=== PATIENT | female | born 1960 | race Caucasian/White ===

== ENCOUNTER → 2017-01-27 | Outpatient (CLI) | payer OTHER | LOC: CIMAGING 09:35 | PROVIDERS: ATTEND Family Medicine | DX: Z12.31 Encounter for screening mammogram for malignant neoplasm of breast (principal); Z80.3 Family history of malignant neoplasm of breast | CPT/HCPCS: G0202 ==

== ENCOUNTER → 2017-02-07 | Outpatient (CLI) | payer OTHER | LOC: CIMAGING 13:18 | PROVIDERS: ATTEND Family Medicine | DX: R92.8 Other abnormal and inconclusive findings on diagnostic imaging of breast (principal) | CPT/HCPCS: G0206 ==

== ENCOUNTER 2017-03-22 01:18 | Emergency (ER) | payer SELFPAY ==
[2017-03-22] MEDS ORDERED: BENZONATATE 100 MG CAP PO ONE (01:51)
--- NOTE | 2017-03-22 01:51 | EDPHY ---
H & P Stated Complaint: cough, sore throat, body aches, fever since friday Time Seen by Provider: 03/22/17 01:22 HPI/ROS: CHIEF COMPLAINT: cough, fever, headache, body aches HISTORY OF PRESENT ILLNESS: medically stable 56-year-old female who has been ill for 60 hours. From the beginning she has had moderate, diffuse body aches, headache, myalgias, dry cough, and fever. T-max at home has been 102.6. Did have a mild cold last week, but that only lasted 1-2 days. She was immunized approximately 1 month ago for the seasonal influenza. However she, last week she was exposed to both her and son who were ill with a similar influenza like illness. She has not been able sleep. His throat is quite a bother for her, though her phonation is normal. She finds that the cycling of Tylenol and ibuprofen together is not working for her discomfort as she is unable to sleep = she asked for something stronger, when I ask her how she is doing at home. Specifically, she is here at this odd hour the morning as she could not sleep [place] Prescription Drug Monitoring Program checked: no activity in last year REVIEW OF SYSTEMS: Constitutional: T-max 102.6 Eyes: No discharge ENT: Feels like razor blades when she swallows Cardiovascular: No chest pain, no palpitations. Respiratory: Though she has a dry cough and history of asthma she does not feel like she wheezing Gastrointestinal: No nausea vomiting or diarrhea. No abdominal pain. Genitourinary: No hematuria or frequency. Musculoskeletal: No back pain. Skin: No rashes. Neurological: Diffuse frontal headache 10 point ROS otherwise negative Source: Patient Exam Limitations: No limitations - Personal History Current Tetanus Diphtheria and Acellular Pertussis (TDAP): Yes - Medical/Surgical History Hx Asthma: Yes Hx Chronic Respiratory Disease: No Hx Diabetes: Yes Hx Cardiac Disease: No Hx Renal Disease: No Hx Cirrhosis: No Hx Alcoholism: No Hx HIV/AIDS: No Hx Splenectomy or Spleen Trauma: No Other PMH: asthma, htn - Family History Significant Family History: No pertinent family hx - Social History Smoking Status: Former smoker Alcohol Use: None Drug Use: None - Physical Exam Exam: General Appearance: Alert, hemodynamically stable without history of stress although looks like she feels crummy. Warmer to touch than the initial temperature suggests. . Normal phonation. No respiratory distress. Eyes: Pupils equal and round no pallor or injection. No icterus ENT, Mouth: Mucous membranes moist. Pharynx without erythema or exudate. TM Clear. Neck: No adenopathy. Supple. No JVD. Trachea in midline, nontender. Respiratory: There are no retractions, lungs are clear to auscultation, no rales or rhonchi. Chest wall: Nontender to palpation. No crepitus. Cardiovascular: Regular rate and rhythm. Neurological: Ox3. No motor weakness. Gait nl. Skin: Warm and dry, no rashes. Musculoskeletal: No joint swelling. Extremities: No edema. Psychiatric: Normal affect. Patient is oriented X 3. There is no agitation Constitutional: Initial Vital Signs Temperature (C) 37.1 C 03/22/17 01:31 Heart Rate 122 H 03/22/17 01:31 Respiratory Rate 18 03/22/17 01:31 Blood Pressure 168/102 H 03/22/17 01:31 O2 Sat (%) 94 03/22/17 01:31 O2 Delivery Mode Room Air Allergies/Adverse Reactions: erythromycin base [Erythromycin Base] Allergy (Verified 01/06/16 08:09) Home Medications: Medication Instructions Recorded Estradiol [Estradiol 1 MG (RX)] 11/21/15 medroxyPROGESTERone [Provera 2.5 11/21/15 mg (*)] Benzonatate 200 mg PO TID PRN #28 capsule 03/22/17 Hydrocodone/APAP 5/325 [Melville 1 tab PO Q4 #10 tab 03/22/17 5/325 (*)] Medical Decision Making ED Course/Re-evaluation: [place] prescription Drug monitoring database queried and no activity in the last year. Her strep screen was negative Influenza stirring positive for influenza A. We have not seen a moderate degree of influenza like illness with both people testing negative. She is now at 60 hours. There is truly marginal to no improvement with Tamiflu in the 1st place and she is well out 60 hour window - we discussed this. Further, no role of antibiotics in a case such as this. She will be 5 confined to [facility], she is currently retired thus will not need a work note. Differential Diagnosis: Diagnostic considerations include, but are not limited to, the following: URI, sinusitis, pharyngitis, otitis media, pneumonia, allergy, influenza. - Data Points Laboratory Results: 03/22/17 03/22/17 03/22/17 Unknown 01:27 01:27 Influenza A,B Rapid POSITIVE FOR FLU A H (NEGATIVE) Group A Strep Screen NEGATIVE (NEGATIVE) Group A Strep DNA Pending Medications Given: Discontinued Medications Hydrocodone Bitart/Acetaminophen (Melville 5/325mg Prepack#6) 1 btl TAKEHOME EDNOW ONE Stop: 03/22/17 01:54 Last Admin: 03/22/17 02:03 Dose: 1 btl Benzonatate (Tessalon Pearles) 200 mg PO EDNOW ONE Stop: 03/22/17 01:52 Last Admin: 03/22/17 02:02 Dose: 200 mg Ibuprofen (Motrin) 600 mg PO EDNOW ONE Stop: 03/22/17 02:08 Last Admin: 03/22/17 02:09 Dose: 600 mg Departure - Departure Disposition: Home, Routine, Self-Care Clinical Impression: Influenza A Condition: Fair Instructions: Hydrocodone/Acetaminophen (By mouth), Influenza (ED) Additional Instructions: Your quite contagious, it is important that he stay home for the next 4 days As the Tylenol is not working, substitute the Vicodin, also known as Melville Continue to push fluids and rest Recheck with family doctor in 3 days if not markedly improved Referrals: Patient,NotPresent [Primary Care Provider] - As per Instructions Prescriptions: Benzonatate 200 mg PO TID PRN #28 capsule PRN Reason: Cough, Moderate Hydrocodone/APAP 5/325 [Melville 5/325 (*)] 1 tab PO Q4 #10 tab
[2017-03-22] MEDS ORDERED: HYDROCOD/APAP 5/325 PREPACK#6 BTL TAKEHOME ONE (01:53)
[2017-03-22] MEDS ORDERED: IBUPROFEN 600 MG TAB PO ONE ×2 (02:07→02:08)
[2017-03-22 02:18] VITALS: BP 149/71; PULSE 114; RESP 20; TEMP 101.5; O2SAT 92
== END 2017-03-22 02:13 | disposition home or self-care (01) ==
LOC: CED 01:18
DX: J10.1 Influenza due to other identified influenza virus with other respiratory manifestations (principal); I10 Essential (primary) hypertension; J45.909 Unspecified asthma, uncomplicated; E11.9 Type 2 diabetes mellitus without complications; Z87.891 Personal history of nicotine dependence
CPT/HCPCS: 87400-PO; 87880-PO

== ENCOUNTER 2017-03-28 08:44 | Emergency (ER) | payer SELFPAY ==
--- NOTE | 2017-03-28 09:07 | EDPHY ---
H & P Stated Complaint: return visit from Sat- DX of INF-A/ rt lower leg pain since Time Seen by Provider: 03/28/17 08:58 HPI/ROS: CHIEF COMPLAINT: Right leg pain HISTORY OF PRESENT ILLNESS: Patient is a 56-year-old female who is suffering from the flu diagnosed last Friday here. She was treated with cough syrup and was doing well until she ran out yesterday. She states that she has a hard time sleeping because of her cough and the mucous in her sinuses. She also began noticing some pain in her right calf 2 days ago. She was concerned because she was on a 9 hour flight 10 days ago to [place]. She does not have any swelling or edema. No erythema. REVIEW OF SYSTEMS: Constitutional: See HPI EENTM: denies: blurred vision, double vision, nose congestion Respiratory: See HPI Cardiac: denies: chest pain, irregular heart rate, lightheadedness, palpitations Gastrointestinal/Abdominal: denies: abdominal pain, diarrhea, nausea, vomiting, blood streaked stools Genitourinary: denies: dysuria, frequency, hematuria, pain Musculoskeletal: See HPI Skin: denies: lesions, rash, jaundice, bruising Neurological: denies: headache, numbness, paresthesia, tingling, dizziness, weakness Hematologic/Lymphatic: denies: blood clots, easy bleeding, easy bruising Immunologic/allergic: denies: HIV/AIDS, transplant EXAM: GENERAL: Anxious, well-nourished and in no acute distress. HEAD: Atraumatic, normocephalic. EYES: Pupils equal round and reactive to light, extraocular movements intact, sclera anicteric, conjunctiva are normal. ENT: TMs normal, nares patent, oropharynx clear without exudates. Moist mucous membranes. NECK: Normal range of motion, supple without lymphadenopathy or JVD. LUNGS: Breath sounds clear to auscultation bilaterally and equal. No wheezes rales or rhonchi. HEART: Regular rate and rhythm without murmurs, rubs or gallops. ABDOMEN: Soft, nontender, normoactive bowel sounds. No guarding, no rebound. No masses appreciated. BACK: No CVA tenderness, no spinal tenderness, step-offs or deformities EXTREMITIES: Right calf pain, no tenderness, no swelling, no erythema, negative Homans NEUROLOGICAL: Cranial nerves II through XII grossly intact. Normal speech, normal gait. 5/5 strength, normal movement in all extremities, normal sensation PSYCH: Normal mood, normal affect. SKIN: Warm, dry, normal turgor, no visible rashes or lesions. Source: Patient Exam Limitations: No limitations - Personal History Current Tetanus Diphtheria and Acellular Pertussis (TDAP): Yes - Medical/Surgical History Hx Asthma: Yes Hx Chronic Respiratory Disease: No Hx Diabetes: Yes Hx Cardiac Disease: No Hx Renal Disease: No Hx Cirrhosis: No Hx Alcoholism: No Hx HIV/AIDS: No Hx Splenectomy or Spleen Trauma: No Other PMH: asthma, htn - Family History Significant Family History: No pertinent family hx - Social History Smoking Status: Former smoker Alcohol Use: Sober Drug Use: None Constitutional: Initial Vital Signs Temperature (C) 36.7 C 03/28/17 08:54 Heart Rate 100 03/28/17 08:54 Respiratory Rate 22 H 03/28/17 08:54 Blood Pressure 168/83 H 03/28/17 08:54 O2 Sat (%) 92 03/28/17 08:54 O2 Delivery Mode Room Air Allergies/Adverse Reactions: erythromycin base [Erythromycin Base] Allergy (Verified 01/06/16 08:09) Home Medications: Medication Instructions Recorded Estradiol [Estradiol 1 MG (RX)] 11/21/15 medroxyPROGESTERone [Provera 2.5 11/21/15 mg (*)] Benzonatate 200 mg PO TID PRN #28 capsule 03/22/17 Hydrocodone/APAP 5/325 [[place] 1 tab PO Q4 #10 tab 03/22/17 5/325 (*)] Guaifen/Dextromethorphan/PE 1 each PO BID #20 tablet 03/28/17 [Mucinex Fast-Max Congest-Cough] Medical Decision Making - Diagnostics Imaging Results: Imaging Impressions Extremity Venous Study 03/28/17 09:04 Impression: No evidence of deep vein thrombosis in the right lower extremity. Results called and discussed with Allan Palmer MD at 03/28/2017 9:54 Imaging: Discussed imaging studies w/ scallop cutter machine Radiologist ED Course/Re-evaluation: Patient's breath sounds are clear an oxygen saturations are normal. She is in no respiratory distress. We discussed restarting her cough medication. I will switch her to Mucinex hydrocodone. She is happy with this plan. She should only have a few days left of her flu symptoms. We will obtain an ultrasound of her right leg. 10:00 a.m. the patient is relieved with the ultrasound results. We discussed no medications, humidifier etc. She feels comfortable leaving and declines further workup or testing at this time. Differential Diagnosis: Partial list of the Differential diagnosis considered include but were not limited to; influenza, bronchitis, DVT, muscle strain and although unlikely based on the history and physical exam, I also considered meningitis, sepsis. I discussed these differential diagnoses and the plan with the patient as well as the usual and expected course. The patient understands that the diagnosis is provisional and that in medicine we are not always correct and that further workup is often warranted. Usual and customary warnings were given. All of the patient's questions were answered. The patient was instructed to return to the emergency department should the symptoms at all worsen or return, otherwise to followup with the physician as we discussed. Departure - Departure Disposition: Home, Routine, Self-Care Clinical Impression: Influenza A Condition: Fair Instructions: Influenza (ED) Referrals: Bernadette Walter MD [Primary Care Provider] - As per Instructions Prescriptions: Guaifen/Dextromethorphan/PE [Mucinex Fast-Max Congest-Cough] 1 each PO BID #20 tablet
[2017-03-28 10:01] VITALS: BP 167/66; PULSE 85; RESP 20; TEMP 98; O2SAT 91
== END 2017-03-28 10:00 | disposition home or self-care (01) ==
LOC: CED 08:44
DX: J10.1 Influenza due to other identified influenza virus with other respiratory manifestations (principal); J45.909 Unspecified asthma, uncomplicated; I10 Essential (primary) hypertension; Z87.891 Personal history of nicotine dependence
CPT/HCPCS: 93971-PO